=== PATIENT | female | born 1985 | race Caucasian/White ===

== ENCOUNTER 2023-02-04 08:02 | Emergency (ER) | payer OTHER, SELFPAY ==
--- NOTE | 2023-02-04 08:07 | ED.URI ---
HPI - URI/Sore Throat General Chief Complaint: Eye Problems Stated Complaint: Eye Problem/Sore Throat Time Seen by Provider: 02/04/23 08:11 Source: patient, RN notes reviewed and old records reviewed Mode of arrival: ambulatory Limitations: no limitations History of Present Illness HPI Narrative: 38-year-old female presents to the [facility] with complaints of left eye itching and crusted shut this morning. States it started last night is just itching woke up this morning with redness, crusting and discharge from the left eye. Denies any change in vision. Denies any trauma. Patient also reports she has had a sore throat for the last 2-3 days and would like that checked. History of RA Does not wear contact lenses or glasses. Treatments prior to arrival: none Related Data Home Medications Medication Instructions Recorded Confirmed folic acid 1 mg tablet 1 mg PO DIRECTED 02/04/23 02/04/23 hydroxychloroquine 200 mg tablet 200 mg PO DIRECTED 02/04/23 02/04/23 leflunomide 20 mg tablet 20 mg PO DIRECTED 02/04/23 02/04/23 Allergies Allergy/AdvReac Type Severity Reaction Status Date / Time No Known Allergies Allergy Mild Verified 02/04/23 08:23 Review of Systems Review of Systems: All systems reviewed & are unremarkable except as noted in HPI and below Constitutional: Constitutional: Reports no additional constitutional complaints Eyes: Eyes: Reports as per HPI, Reports eye discharge and Reports irritation ENT: Reports as per HPI and Reports sore throat Cardiovascular: Cardiovascular: Reports no additional cardiovascular complaints, Denies chest pain and Denies dyspnea Respiratory: Respiratory: Reports no additional respiratory complaints, Denies chest congestion, Denies cough and Denies dyspnea Gastrointestinal: Gastrointestinal: Reports no additional gastrointestinal complaints, Denies abdominal pain, Denies nausea and Denies vomiting Musculoskeletal: Musculoskeletal: Reports no additional musculoskeletal complaints Integumentary/Breasts: Skin/Breast: Reports system reviewed and no additional complaints, except as docu Neurologic: Reports system reviewed and no additional complaints, except as documented Psychiatric: Psychiatric: Reports no additional psychiatric complaints Allergic/Immunologic: Allergic/Immunologic: Reports no additional allergic/immunologic complaints PMFSH Past Medical History Medical History (Updated 02/04/23 @ 08:57 by Sharla Mishra APRN) Hx of supraventricular tachycardia Rheumatoid arthritis Surgical History Surgical History (Updated 02/04/23 @ 08:28 by Sharla Mishra APRN) History of bilateral tubal ligation History of Hx of cholecystectomy Social History Social History (Updated 02/04/23 @ 08:29 by Sharla Mishra APRN) Living arrangements: with family Gender identity (if verbalized by the patient): Female Comments At the time of my signature, I reviewed and agree with the nursing past medical, surgical, social, and family history. There is no relevant family history pertinent to the patient complaint. Exam Const: General: cooperative, healthy appearing, comfortable, no acute distress, well developed, alert and well nourished Nutritional Appearance: well nourished and obese Orientation/consciousness: patient oriented x3 Limitations: no limitations HENMT: Head: normal to inspection Ears: hearing grossly normal bilaterally and external ears normal Face/Nose/Sinus: Normal external nose present, Normal nares present, Normal nasal mucous membranes and turbinates present and normal facial exam Face and sinus: normal facial exam Mouth: Yes Normal oral and palatal mucosa present, Yes lip normal and Yes moist mucous membranes Throat: posterior oropharynx normal, tonsils normal, uvula midline and postnasal drainage Eyes: General: appearance normal, both eyes and all related structures Visual Velez: normal visual velez by confrontation Alignment a
[2023-02-04 08:10] VITALS: BP 150/98; PULSE 100; RESP 16; TEMP 36.6; O2SAT 98
== END 2023-02-04 08:41 | disposition home or self-care (01) ==
PROVIDERS: Emergency Provider Nurse Practitioner
DX: H10.32 Unspecified acute conjunctivitis, left eye (principal); J02.9 Acute pharyngitis, unspecified; M06.9 Rheumatoid arthritis, unspecified
CPT/HCPCS: 87081; 87880; 99213; G0463